=== PATIENT | female | born 1975 | race Caucasian/White ===

== ENCOUNTER 2017-03-11 21:31 | Emergency (ER) | payer BC ==
[~2017-03-11] VITALS: Ht 172.7 cm; Wt 100.0 kg
[2017-03-11] MEDS ORDERED: PHENTERMINE H37.5 M2 PO (21:43)
[2017-03-11] MEDS ORDERED: COZAAR100 MG PO (21:43)
[2017-03-11] MEDS ORDERED: TYLENOL WITH CO1 TA1 PO (21:43)
[2017-03-11] MEDS ORDERED: CYCLOBENZAPRINE10 M1 PO (22:56)
[2017-03-11 23:19] VITALS: BP 151/93
== END 2017-03-11 23:19 | disposition home or self-care (01) ==
LOC: ED 21:31
DX: M54.17 Radiculopathy, lumbosacral region (principal); M54.32 Sciatica, left side
CPT/HCPCS: J1885

== ENCOUNTER 2017-04-20 13:00 | Outpatient (RCR) | payer BC ==
[~2017-04-20 13:00] MED LIST: COZAAR100 MG PO; CYCLOBENZAPRINE10 M1 PO; PHENTERMINE H37.5 M2 PO; TYLENOL WITH CO1 TA1 PO
== END 2017-05-25 14:52 | disposition home or self-care (01) ==
LOC: PT 13:00
DX: M47.9 Spondylosis, unspecified (principal); M54.16 Radiculopathy, lumbar region

== ENCOUNTER → 2017-11-12 | Outpatient (CLI) | payer BC | LOC: LAB 07:48 | DX: R68.89 Other general symptoms and signs (principal); Z88.1 Allergy status to other antibiotic agents ==

== ENCOUNTER → 2018-03-16 | Outpatient (CLI) | payer BC | LOC: MAMMO 11:20 | DX: Z12.31 Encounter for screening mammogram for malignant neoplasm of breast (principal) ==

== ENCOUNTER → 2020-08-29 | Outpatient (CLI) | payer BC | LOC: MAMMO 08:30 | DX: Z12.31 Encounter for screening mammogram for malignant neoplasm of breast (principal) ==

== ENCOUNTER → 2023-08-05 | Outpatient (CLI) | payer BC | LOC: MAMMO 09:00 | DX: Z12.31 Encounter for screening mammogram for malignant neoplasm of breast (principal) ==

== ENCOUNTER → 2024-08-03 | Outpatient (CLI) | payer BC | LOC: MAMMO 08:54 | DX: Z12.31 Encounter for screening mammogram for malignant neoplasm of breast (principal) ==